=== PATIENT | male | born 1960 | race Caucasian/White ===

== ENCOUNTER → 2017-03-14 | Outpatient (CLI) | payer BC ==
[2017-03-14 12:42] LABS: BASO # 0.1 x10^3/uL (0.0-0.2); BASO % 1 % (0-3); EOS % 3 % (0-3); HEMATOCRIT 41.5 % (39.0-53.0); HEMOGLOBIN 14.3 g/dL (13.0-17.5); LYMPH # 1.7 x10^3/uL (1.0-4.8); LYMPH % 32 % (24-48); MEAN CORPUSCULAR HEMOGLOBIN 31 pg (25-35); MEAN CORPUSCULAR HGB CONC 35 g/dL (31-37); MEAN CORPUSCULAR VOLUME 89 fL (79-100); MONO % 7 % (0-9); NEUT % 58 % (31-73); PLATELET COUNT 228 x10^3/uL (140-400); RED BLOOD COUNT 4.65 x10^6/uL (4.30-5.70); RED CELL DISTRIBUTION WIDTH 13.5 % (11.5-14.5); WHITE BLOOD COUNT 5.4 x10^3/uL (4.0-11.0)
[2017-03-14 12:45] LABS: CALCIUM 8.4 mg/dL (8.5-10.1); GFR 77.6; POTASSIUM 4.5 mmol/L (3.5-5.1)
== END | disposition home or self-care (01) ==
LOC: LAB 12:15
PROVIDERS: ATTEND Internal Medicine Cardiovascular Disease
DX: I48.91 Unspecified atrial fibrillation (principal); Z98.890 Other specified postprocedural states; I49.3 Ventricular premature depolarization
CPT/HCPCS: 36415; 80048; 83735; 84443; 85027

== ENCOUNTER 2018-02-17 06:11 | Day surgery (SDC) | payer BC ==
[2018-02-17] MEDS ORDERED: ONDANSETRON PF 4 MG/2 ML VIAL. IV (07:00)
[2018-02-17] MEDS ORDERED: fentaNYL PF VIAL 100 MCG/2 ML VIAL IV ×2 (07:00)
[2018-02-17] MEDS ORDERED: MORPHINE SULFATE 2 MG/ML DISP.SYRIN. IV (07:00)
[2018-02-17] MEDS ORDERED: PROCHLORPERAZINE 10 MG/2 ML VIAL. IV (07:00)
[2018-02-17] MEDS ORDERED: LIDOCAINE 1% PF 2 ML VIAL. ID (07:00)
[2018-02-17] MEDS: IV RINGERS,LACTATED 1000ML 1,000 ML IV (07:08)
[2018-02-17] MEDS ORDERED: MIDAZOLAM HCL/PF 2 MG/2 ML VIAL. (07:16)
[2018-02-17] MEDS ORDERED: PROPOFOL 20 ML IV (07:16)
[2018-02-17] MEDS ORDERED: LIDOCAINE 2% PF Vial for OR 5 ML VIAL. (07:16)
[2018-02-17] MEDS ORDERED: ONDANSETRON PF 4 MG/2 ML VIAL. (07:17)
[2018-02-17] MEDS ORDERED: DEXAMETHASONE SOD PHOS 20 MG/5 ML VIAL. (07:17)
[2018-02-17] MEDS ORDERED: fentaNYL PF VIAL 100 MCG/2 ML VIAL ×2 (07:17→08:06)
[2018-02-17] MEDS: BUPIVACAINE-EPI 0.25%-1:200000 50 ML VIAL. (07:47)
[2018-02-17] MEDS ORDERED: SEVOFLURANE 31 TO 60 MINUTES. IH (08:14)
[2018-02-17] MEDS ORDERED: KETOROLAC 30 MG/ML INJ FOR OR. INJ (08:14)
[2018-02-17] MEDS ORDERED: PHENYLEPHRINE in 0.9% NACL PF 1 MG/10 ML SYRINGE. IV (08:16)
[2018-02-17] MEDS ORDERED: ePHEDrine PF IN SALINE 50 MG/5 ML DISP.SYRIN IV (08:26)
[2018-02-17] MEDS ORDERED: oxyCODONE/APAP 5/325 1 TAB TABLET (09:13)
[2018-02-17] MEDS: oxyCODONE/APAP 5/325 1 TAB TABLET PO (09:14)
[2018-02-17] MEDS ORDERED: ceFAZolin 2GM PREMIX 2 GM/50 ML BAG IV (12:00)
== END 2018-02-17 09:54 | disposition home or self-care (01) ==
LOC: SURG 06:11
DX: K42.9 Umbilical hernia without obstruction or gangrene (principal); I10 Essential (primary) hypertension; E78.00 Pure hypercholesterolemia, unspecified; I48.91 Unspecified atrial fibrillation; Z98.890 Other specified postprocedural states; Z79.82 Long term (current) use of aspirin; Z79.899 Other long term (current) drug therapy
CPT/HCPCS: 49585; A7015; C1781; J0690; J1100; J1885; J2250; J2370; J2405; J2704; J3010; J7120